=== PATIENT | female | born 1980 | race African-American/Black ===

== ENCOUNTER → 2021-03-06 | Day surgery (SDC) | payer MEDICARE, OTHER ==
[~2021-03-06] MED LIST: AMLODIPINE BESY10 MG PO; CARBAMAZEPINE200 MG PO; FENTANYL CITRATE/PF 100MCG/2 ML INJ ONE; KLONOPIN0.5 MG PO; LOSARTAN-HCTZ1 EACH PO; METOPROLOL TART25 MG PO; MIDAZOLAM HCL 5 MG/ML VIAL ONE; PANTOPRAZOLE SO40 MG PO; POVIDONE IODINE 0.05% 0.05 % ML PO ONE; PROPOFOL IV EMULSION 10 MG/ML 20 ML VIAL ONE; RISPERIDONE1 MG PO
[2021-03-06 11:45] VITALS: BP 114/76
== END | disposition home or self-care (01) ==
LOC: OR 09:24
PROVIDERS: ATTEND Internal Medicine Gastroenterology
DX: K25.3 Acute gastric ulcer without hemorrhage or perforation (principal); K44.9 Diaphragmatic hernia without obstruction or gangrene; Z71.3 Dietary counseling and surveillance; E66.01 Morbid (severe) obesity due to excess calories; I10 Essential (primary) hypertension; F17.210 Nicotine dependence, cigarettes, uncomplicated; Z01.810 Encounter for preprocedural cardiovascular examination; Z01.812 Encounter for preprocedural laboratory examination; Z20.822 Contact with and (suspected) exposure to COVID-19; Z68.42 Body mass index [BMI] 45.0-49.9, adult; Z86.711 Personal history of pulmonary embolism; Z86.718 Personal history of other venous thrombosis and embolism
CPT/HCPCS: 36415; 43239; 84702; 93005; J2704; U0002; J2250; J3010